=== PATIENT | male | born 2000 | race African-American/Black ===

== ENCOUNTER 2024-01-01 16:07 | Emergency (ER) | payer OTHER ==
[~2024-01-01] VITALS: Ht 180.3 cm; Wt 93.4 kg
[2024-01-01 17:14] VITALS: BP 133/76; PULSE 74; RESP 16; TEMP 98; O2SAT 98
[2024-01-01] MEDS: KETOROLAC TROMETH 60MG/2ML VIAL IM ONE (17:24)
[2024-01-01] MEDS ORDERED: IBUP-1456 PO (17:49)
== END 2024-01-01 17:56 | disposition home or self-care (01) ==
LOC: ER 16:07
DX: M23.92 Unspecified internal derangement of left knee (principal)
CPT/HCPCS: 73562; 96372; 99283; J1885; J7030